=== PATIENT | male | born 1990 | race Two or more races ===

== ENCOUNTER 2016-09-20 10:10 | Inpatient (IN) | payer MEDICAID ==
[~2016-09-20] VITALS: Ht 172.7 cm; Wt 60.8 kg
[~2016-09-20 10:10] MED LIST: ANCEF0.5 GM IVINF; ANCEF1 GM/50 ML IV; AZITHROMYCIN250 MG ORAL; CLINDAMYCIN HC150 MG ORAL; IBUPROFEN600 MG ORAL; MEDROL DOSEPAK4 MG ORAL; NIFEDICAL XL30 MG ORAL; NKM; NORCO 5-325 TA1 EACH ORAL; OXYCODONE HCL5 MG ORAL; RENVELA800 MG ORAL
[2016-09-20 11:06] LABS: BASOPHILS % (AUTO) 0.8 % (0.0-2.0); EOSINOPHILS % (AUTO) 12.6 % (0.0-3.0); LYMPHOCYTES % (AUTO) 25.7 % (20.0-45.0); MEAN CORPUSCULAR HEMOGLOBIN 29.3 PG (27.0-31.0); MEAN CORPUSCULAR HGB CONC 31.8 G/DL (32.0-36.0); MEAN CORPUSCULAR VOLUME 92 FL (80-99); MONOCYTES % (AUTO) 5.5 % (1.0-10.0); NEUTROPHILS % (AUTO) 55.5 % (45.0-75.0); PLATELET COUNT 127 K/UL (150-450); RED BLOOD COUNT 4.02 M/UL (4.70-6.10); RED CELL DISTRIBUTION WIDTH 14.2 % (11.6-14.8); WHITE BLOOD COUNT 5.8 K/UL (4.8-10.8)
[2016-09-20 11:18] LABS: INR 1.2 (0.9-1.1); PROTHROMBIN TIME 11.8 SEC (9.30-11.50)
[2016-09-20 11:20] LABS: ALANINE AMINOTRANSFERASE 21 U/L (3-41); ALBUMIN/GLOBULIN RATIO 1.6 (1.0-2.7); ANION GAP 18 (5-15); ASPARTATE AMINO TRANSFERASE 18 U/L (5-40); CALCIUM 9.3 mg/dL (8.6-10.2); CARBON DIOXIDE 23 mEQ/L (20-30); CHLORIDE 99 mEQ/L (98-107); CREATININE 8.8 mg/dL (0.7-1.2); GLOMERULAR FILTRATION RATE 7.3 mL/min (>60); HEMOLYSIS 6; POTASSIUM 5.7 mEQ/L (3.4-4.9); SODIUM 140 mEQ/L (135-145); TOTAL PROTEIN 6.1 g/dL (6.6-8.7); TROPONIN I < 0.30 ng/mL (<=0.30)
[2016-09-20] MEDS ORDERED: BP pill (11:22)
[2016-09-20] MEDS ORDERED: Calcium Gluconate 1gm/10ml vial IVP ONE (11:45)
[2016-09-20] MEDS ORDERED: Sodium Polystyrene Sulfonate 15gm Powder ORAL ONE (11:45)
[2016-09-20 11:50] VITALS: BP 157/105
--- NOTE | 2016-09-20 11:51 | Emergency Room Report ---
History of Present Illness General Chief Complaint: Generalized Weakness Source: Patient Present Illness HPI The patient presents with dyspnea on exertion and fatigue. He states this began 2 weeks ago when he had the flu. He had sore throat fever and cough that is not productive. He's been able to go to dialysis without problems. Denies any chest pain at this time. He took over the counter cold medicine which advised not to take if dialysis patient. He is concerned this might be a reaction to the medicine. He denies orthopnea or continued productive cough. He still makes urine. Denies any nausea vomiting or diarrhea. He's had no change in his bowel habits. The urine is not foul-smelling. He's had some muscle aches. He states the renal failure is a result from hypertension. Allergies: Coded Allergies: SILVER (Verified Allergy, Severe, SKIN RASH,BLISTER, 08/06/15) Avoid tegederm on chest Uncoded Allergies: MEDICAL TAPE (Allergy, Unknown, rash, 01/03/16) Patient History Past Medical History: see triage record Social History: Reports: smoking - prior Social History Narrative at home Reviewed Nursing Documentation: PMH: Agreed, PSxH: Agreed Nursing Documentation-PMH Past Medical History: No History, Except For Hx Cardiac Problems: No - renal failure Hx Hypertension: Yes Hx Cancer: No Hx Gastrointestinal Problems: No Hx Dialysis: Yes - Started April 2015 ; MWF Hx Neurological Problems: No Review of Systems All Other Systems: negative except mentioned in HPI Physical Exam Vital Signs Date Time Temp Pulse Resp B/P Pulse Ox O2 Delivery O2 Flow Rate FiO2 09/20/16 10:23 98.2 79 16 148/89 100 Room Air Sp02 EP Interpretation: reviewed, normal General Appearance: well appearing, no apparent distress, GCS 15 Head: normocephalic Eyes: bilateral eye PERRL, bilateral eye normal inspection ENT: moist mucus membranes Neck: supple Respiratory: chest non-tender, crackles Cardiovascular #1: regular rate, rhythm Cardiovascular #2: 2+ radial (R), 2+ radial (L) - dialysis shunt Gastrointestinal: normal inspection, normal bowel sounds, non tender, no mass, non-distended Musculoskeletal: back normal, gait/station normal, normal range of motion Neurologic: alert, oriented x3, grossly normal Psychiatric: mood/affect normal Skin: normal inspection, warm/dry Medical Decision Making Diagnostic Impression: Primary Impression: Hyperkalemia Additional Impressions: Pulmonary edema Qualified Codes: J81.0 - Acute pulmonary edema ESRD (end stage renal disease) on dialysis Hypoglycemia HTN (hypertension) Qualified Codes: I15.8 - Other secondary hypertension ER Course The patient presents with fatigue and dyspnea with history of renal failure on dialysis. Differential includes acute myocardial infarction, congestive heart failure, deconditioning, electrolyte imbalance amongst others. Emergent evaluation with EKG, chest x-ray and laboratory evaluation is undertaken. The patient be treated with cardiac monitoring. Potassium returns critically high. His x-ray reveals congestive heart failure. The patient needs treatment for the high potassium. Also blood sugar 68. Contact Dr. Romero who asks for panel for admission. Contact Dr. Valenzuela. He requests contact Dr. Mark. Called, no response. Admit to Dr. Valenzuela telemetry. Laboratory Tests Test 09/20/16 10:45 White Blood Count 5.8 K/UL (4.8-10.8) Red Blood Count 4.02 M/UL (4.70-6.10) L Hemoglobin 11.8 G/DL (14.2-18.0) L Hematocrit 37.1 % (42.0-52.0) L Mean Corpuscular Volume 92 FL (80-99) Mean Corpuscular Hemoglobin 29.3 PG (27.0-31.0) Mean Corpuscular Hemoglobin Concent 31.8 G/DL (32.0-36.0) L Red Cell Distribution Width 14.2 % (11.6-14.8) Platelet Count 127 K/UL (150-450) L Mean Platelet Volume 9.0 FL (6.5-10.1) Neutrophils (%) (Auto) 55.5 % (45.0-75.0) Lymphocytes (%) (Auto) 25.7 % (20.0-45.0) Monocytes (%) (Auto) 5.5 % (1.0-10.0) Eosinophils (%) (Auto) 12.6 % (0.0-3.0) H Basophils (%) (Auto) 0.8 % (0.0-2.0) Prothrombin Time 11.8 SEC (9.30-11.50) H Prothrombin Time INR 1.2 (0.9-1.1) H PTT 27 SEC (23-33) Sodium Level 140 mEQ/L (135-145) Potassium Level 5.7 mEQ/L (3.4-4.9) H Chloride Level 99 mEQ/L (98-107) Carbon Dioxide Level 23 mEQ/L (20-30) Anion Gap 18 (5-15) H Blood Urea Nitrogen 54 mg/dL (7-23) H Creatinine 8.8 mg/dL (0.7-1.2) H Estimate Glomerular Filtration Rate 7.3 mL/min (>60) Glucose Level 68 mg/dL (74-106) L Calcium Level 9.3 mg/dL (8.6-10.2) Total Bilirubin 0.8 mg/dL (0.0-1.2) Aspartate Amino Transferase (AST) 18 U/L (5-40) Alanine Aminotransferase (ALT) 21 U/L (3-41) Alkaline Phosphatase 77 U/L (40-129) Total Creatine Kinase 123 U/L (38-174) Troponin I < 0.30 ng/mL (<=0.30) Pro-B-Type Natriuretic Peptide Pending Total Protein 6.1 g/dL (6.6-8.7) L Albumin 3.8 g/dL (3.5-5.2) Globulin 2.3 g/dL Albumin/Globulin Ratio 1.6 (1.0-2.7) EKG Diagnostic Results Rate: normal Rhythm: NSR ST Segments: no acute changes Rhythm Strip Diag. Results EP Interpretation: yes Rhythm: NSR, no PVC's, no ectopy Chest X-Ray Diagnostic Results EP Interpretation: Yes Findings: no effusion, no pneumothorax, other - CHF Number of Views: 1 Last Vital Signs Date Time Temp Pulse Resp B/P Pulse Ox O2 Delivery O2 Flow Rate FiO2 09/20/16 11:57 157/105 09/20/16 11:50 85 18 100 Room Air 09/20/16 10:23 98.2 Status: improved Disposition: ADMITTED INPATIENT Condition: Serious Referrals: NON PHYSICIAN (PCP) Lio Madrigal M.D. Sep 20, 2016 11:51
[2016-09-20] MEDS ORDERED: Nitroglycerin 2% oint pkt TOPIC ONE (12:00)
[2016-09-20 12:20] LABS: APPEARANCE,URINE CLEAR; KETONES,URINE 1+ (NEGATIVE); LEUKOCYTE ESTERASE ,URINE NEGATIVE (NEGATIVE); NITRITE,URINE NEGATIVE (NEGATIVE); PH,URINE 8 (4.5-8.0); PROTEIN,URINE 4+ (NEGATIVE); UROBILINOGEN,URINE NORMAL MG/DL (0.0-1.0)
[2016-09-20 12:32] LABS: BACTERIA,URINE FEW /HPF; SQUAMOUS EPITHELIAL CELL,UR OCCASIONAL /LPF (NONE/OCC); WBC,URINE 0-2 /HPF (0 - 0)
[2016-09-20 14:00] VITALS: BP 145/96
[2016-09-20 15:30] VITALS: BP 138/99
[2016-09-20 16:40] VITALS: BP 146/83
[2016-09-20] MEDS: Heparin 5000 units/ml inj SUBQ SCH (17:59)
[2016-09-20] MEDS: Renagel 400mg cap ORAL SCH (18:00)
[2016-09-20] MEDS ORDERED: Bisacodyl EC 5mg tab ORAL PRN (18:00)
[2016-09-20 20:00] VITALS: BP 153/103
[2016-09-20] MEDS ORDERED: Zolpidem 5mg tab ORAL PRN (21:00)
[2016-09-20] MEDS: Losartan 50mg tab ORAL SCH (21:47)
[2016-09-20 21:48] VITALS: BP 152/90
--- NOTE | 2016-09-20 22:08 | History and Physical Report ---
DATE OF ADMISSION: 09/20/2016 CHIEF COMPLAINT AND REASON FOR HOSPITALIZATION: The patient is a 26-year-old man with end-stage renal disease, admitted with CHF and hyperkalemia. HISTORY OF PRESENT ILLNESS: The patient has been on dialysis for about two years. He has hypertension and end-stage renal disease. He had his last dialysis on 09/18/2016. He came to the hospital feeling weak, short of breath and was found to have potassium of 5.7 and BNP [id number]. There is no chest pain. He states he generally tolerates dialysis well. PAST SURGICAL HISTORY: AV fistula in the left arm. MEDICATIONS: He denies taking any medications. ALLERGIES: None known. HABITS: He is a nondrinker and nonsmoker. SYSTEM REVIEW: HEENT: Vision hearing is good. ENDOCRINE: No known diabetes or thyroid disease. PULMONARY: No asthma, TB, or chronic cough. CARDIAC: History of fluid overload in the past and hypertension. Denies angina or CO. GI: Denies GI bleeding. He has had some diarrhea and nausea. GENITOURINARY: No dysuria or hematuria. NEUROLOGIC: No CVA or seizures. PHYSICAL EXAMINATION: GENERAL: The patient is alert and well-developed man, in no acute distress. VITAL SIGNS: Blood pressure was 157/105, now 138/99, temperature 98.3 degrees, pulse 88, and respirations 22. HEAD, EYES EARS, NOSE, AND THROAT: Sclerae nonicteric. Ocular motions intact in all directions. Oral mucosa moist. NECK: No adenopathy or thyroid enlargement. LUNGS: Clear. HEART: Rhythm is regular. There is increase S2. I hear no murmur. ABDOMEN: Soft. No organomegaly or masses. EXTREMITIES: No edema, cyanosis, or clubbing. PERTINENT LABS: He has a white count of 5.8 and hemoglobin 11.8. Potassium 5.7, BUN 54, and creatinine 8.8. IMPRESSION: 1. End-stage renal disease. 2. Hyperkalemia. 3. Congestive heart failure, acute on chronic. 4. Hypertensive heart disease. PLAN: Dialysis will be arranged. He may need further antihypertensive therapy. I have discussed diet and medication management with the patient. Alvarez Valenzuela M.D. DR: Rei JOB#: [id number] CC:
[2016-09-21] VITALS (21 sets, daily range): BP systolic 130–148; BP diastolic 76–100
--- NOTE | 2016-09-21 08:39 | Diagnostic Imaging Report ---
Indication: Chest Pain Comparison: 09/24/15 A single view chest radiograph was obtained. Findings: There is infiltrate suspected at the right lung base. Please correlate clinically. The heart is enlarged. Bones are unremarkable in appearance. Impression: Question of infiltrate right lung base. These correlate clinically for pneumonia. Cardiomegaly
[2016-09-21] MEDS: Renagel 400mg cap ORAL SCH ×3 (09:00→18:00)
[2016-09-21] MEDS: Losartan 50mg tab ORAL SCH ×2 (09:00→20:44)
[2016-09-21] MEDS: Heparin 5000 units/ml inj SUBQ SCH ×2 (10:27→20:44)
[2016-09-22] VITALS: BP 140/88
[2016-09-22 04:00] VITALS: BP 125/72
[2016-09-22 07:48] VITALS: BP 130/77
[2016-09-22] MEDS: Heparin 5000 units/ml inj SUBQ SCH (09:00)
[2016-09-22] MEDS: Renagel 400mg cap ORAL SCH ×3 (09:35→18:00)
[2016-09-22] MEDS: Losartan 50mg tab ORAL SCH (09:36)
[2016-09-22 11:16] VITALS: BP 138/84
[2016-09-22 16:00] VITALS: BP 134/84
[2016-09-22] MEDS ORDERED: NS 275ml ONE (16:59)
[2016-09-22] MEDS ORDERED: 1/2 NS 1000ml IV ONE (16:59)
[2016-09-22] MEDS ORDERED: Tubing Blood Filter IV ONE (16:59)
--- NOTE | 2016-09-22 18:56 | Cardiology Report ---
APPROVED REPORT EKG Measurement Heart [id number] Normal sinus rhythm Possible Left atrial enlargement Nonspecific T wave abnormality Abnormal ECG
--- NOTE | 2016-10-03 06:54 | Discharge Summary ---
Discharge Summary Hospital Course Date of Admission Sep 20, 2016 at 11:51 Date of Discharge Sep 22, 2016 at 17:00 Admitting Diagnosis HYPERKALEMIA ,CHF.ESRD HPI Hakan Croft is a 26 year old male who was admitted on Sep 20, 2016 at 11:51 for Hyperkalemia, Congestive Heart Failure, Esrd Procedures [id number] Discharge Discharge Disposition Patient was discharged to Home (01) Discharge Diagnoses: Ruby Arzate NP Oct 03, 2016 06:54
--- NOTE | 2016-10-04 03:09 | Discharge Summary 2 SIG ---
DATE OF ADMISSION: 09/20/2016 DATE OF DISCHARGE: 09/22/2016 BRIEF HOSPITAL COURSE: The patient is a 26-year-old male, who presented to ED complaining of dyspnea on exertion and fatigue and some fever and sore throat. He has history of end-stage renal disease and is on hemodialysis. On evaluation at ED, potassium was 5.7. X-ray revealed congestion. Blood sugar was 68. He was admitted to telemetry for cardiac monitoring. He was started on renal diet. He was given Kayexalate and calcium gluconate and he was eventually discharged home. FINAL DIAGNOSES: 1. Hyperkalemia. 2. End-stage renal disease, on hemodialysis. 3. Hypertension. Ana Mark M.D. I have been assigned to dictate discharge summary on this account and I was not involved in the patient's management. Ruby Arzate N.P. DR: Andrew JOB#: [id number] CC:
== END 2016-09-22 17:00 | disposition home or self-care (01) | DRG 194 ==
LOC: EMR 10:38 → 2W 11:51 → EDBEDREQ 11:58 → 2W 19:45 → 2E 09-22 00:04
DX: I13.2 Hypertensive heart and chronic kidney disease with heart failure and with stage 5 chronic kidney disease, or end stage renal disease (principal); N18.6 End stage renal disease; I50.9 Heart failure, unspecified; Z99.2 Dependence on renal dialysis; E87.5 Hyperkalemia; Z88.8 Allergy status to other drugs, medicaments and biological substances
CPT/HCPCS: 36415; 71010; 80053; 81003; 82550; 82962; 83880; 84484; 85025; 85610; 85730; 86705; 86709; 86803; 87081; 87340; 93005; J2405

== ENCOUNTER 2017-05-23 08:13 | Emergency (ER) | payer MEDICAID ==
[~2017-05-23] VITALS: Ht 172.7 cm; Wt 59.0 kg
[~2017-05-23 08:13] MED LIST changes: +BP pill
[2017-05-23 08:32] VITALS: BP 147/87
[2017-05-23] MEDS ORDERED: ROBAXIN-750750 MG PO (08:39)
[2017-05-23] MEDS ORDERED: ACETAMINOPHEN500 M3 ORAL (08:39)
--- NOTE | 2017-05-23 08:44 | Emergency Room Report ---
History of Present Illness General Chief Complaint: Pain Source: Patient Present Illness HPI 19-year-old male history of end-stage renal disease on dialysis Wednesday for the last 2 years unknown reason per kidney disease, presenting with 3 weeks of left hip pain and right knee pain patient states that left hip and right knee aches only when he runs long distances. Denies pain otherwise. Left hip pain starts around left buttocks, no radiation. No weakness of lower extremities No fever chills, no swollen joints Denies any current pain Allergies: Coded Allergies: SILVER (Verified Allergy, Severe, SKIN RASH,BLISTER, 08/06/15) Avoid tegederm on chest Uncoded Allergies: MEDICAL TAPE (Allergy, Unknown, rash, 01/03/16) Patient History Past Medical History: see triage record Past Surgical History: none Pertinent Family History: none Reviewed Nursing Documentation: PMH: Agreed, PSxH: Agreed Nursing Documentation-PMH Hx Cardiac Problems: No - renal failure Hx Hypertension: Yes Hx Cancer: No Hx Gastrointestinal Problems: No Hx Dialysis: Yes - M-W- last dialyzed on Wednesday Hx Neurological Problems: No Review of Systems All Other Systems: negative except mentioned in HPI Physical Exam Vital Signs Date Time Temp Pulse Resp B/P (MAP) Pulse Ox O2 Delivery O2 Flow Rate FiO2 05/23/17 08:19 97.9 74 16 147/87 100 Room Air Sp02 EP Interpretation: reviewed, normal General Appearance: normal inspection, well appearing, no apparent distress, alert, GCS 15, non-toxic Head: normocephalic, atraumatic Eyes: bilateral eye normal inspection, bilateral eye PERRL, bilateral eye EOMI ENT: normal ENT inspection, normal pharynx, normal voice, moist mucus membranes Neck: normal inspection, full range of motion, supple Respiratory: normal inspection, lungs clear, normal breath sounds, no respiratory distress, no retraction, no wheezing, speaking full sentences, chest symmetrical Cardiovascular #1: normal inspection, regular rate, rhythm, no edema, normal capillary refill Cardiovascular #2: 2+ radial (R), 2+ radial (L) Gastrointestinal: normal inspection, non tender, soft, non-distended, no guarding Genitourinary: no CVA tenderness Musculoskeletal: back normal, normal range of motion, non-tender, other - Left upper extremity AV fistula with palpable thrill, all extremities with full range of motion, no swollen joints, right knee nontender to palpation, left hip full range of motion no abnormalities, ambulating regularly, able to bear weight on both lower extremities without issue Neurologic: normal inspection, alert, oriented x3, responsive, motor strength/ tone normal, sensory intact, normal gait, speech normal Psychiatric: normal inspection, judgement/insight normal, memory normal Skin: normal inspection, normal color, no rash, warm/dry, well hydrated, normal turgor Medical Decision Making Diagnostic Impression: Primary Impression: Hip pain, left Additional Impression: Chronic musculoskeletal pain ER Course 19-year-old male with left hip and right knee pain when he runs for 3 weeks DDX: Likely musculoskeletal pain, arthritis Not concerned with fracture, completely normal exam No symptoms currently Plan: None ER course: Patient stable, has been ambulatory Disposition: Patient is to be discharged home with a prescription of Robaxin and Tylenol Strict precautions discussed with patient on when to return to the emergency room including increased redness or swelling joints, increased pain/swelling of extremity, fever or chills, which could indicate severe illness. Patient is to follow up with their primary care doctor within 5 days. Patient also instructed to follow up with an orthopedic doctor if continuing to have mild/moderate pain as he may need further outpatient imaging. Patient agrees with plan. Please note that this Emergency Department Report was dictated using [employer] technical specialist technology software, occasionally this can lead to erroneous entry secondary to interpretation by the dictation equipment. Last Vital Signs Date Time Temp Pulse Resp B/P (MAP) Pulse Ox O2 Delivery O2 Flow Rate FiO2 05/23/17 08:32 97.9 68 16 147/87 100 Room Air Disposition: HOME, SELF-CARE Condition: Stable Scripts Acetaminophen* (ACETAMINOPHEN EXTRA STRENGTH*) 500 Mg Tablet 500 MG ORAL Q8H Y for Fever/Headache/Mild Pain, #30 TAB 0 Refills Prov: Jennifer Asencio M.D. 05/23/17 Methocarbamol* (ROBAXIN-750*) 750 Mg Tablet 750 MG PO QID, #28 TAB 0 Refills Prov: Jennifer Asencio M.D. 05/23/17 Referrals: NON PHYSICIAN (PCP) Patient Instructions: Hip Pain, Musculoskeletal Pain Additional Instructions: Please followup with your primary care doctor in one week Please followup with a orthopedic doctor in 2 weeks if not better Jennifer Asencio M.D. May 23, 2017 08:44
[2017-05-23 08:48] VITALS: BP 147/87
== END 2017-05-23 08:51 | disposition home or self-care (01) ==
LOC: EMR 08:31
DX: M25.552 Pain in left hip (principal); M25.561 Pain in right knee; G89.29 Other chronic pain; I10 Essential (primary) hypertension; N19 Unspecified kidney failure; Z99.2 Dependence on renal dialysis
CPT/HCPCS: 99283

== ENCOUNTER 2017-10-24 06:42 | Emergency (ER) | payer MEDICAID ==
[~2017-10-24] VITALS: Ht 172.7 cm; Wt 59.0 kg
[~2017-10-24 06:42] MED LIST changes: +ACETAMINOPHEN500 M3 ORAL; +ROBAXIN-750750 MG PO
[2017-10-24 07:05] VITALS: BP 157/103
[2017-10-24] MEDS ORDERED: AMOXICILLIN500 MG ORAL (07:10)
[2017-10-24 07:14] VITALS: BP 157/103
--- NOTE | 2017-10-24 09:47 | Emergency Room Report ---
History of Present Illness General Chief Complaint: Eye Problems Source: Patient Present Illness HPI 27-year-old M presents ED for evaluation. Notes pain and swelling to his right lower eyelid started 3 days ago. Pain is dull, 3 out of 10, nonradiating. Denies photophobia. Denies any discharge. Denies fevers or chills. Patient has end-stage renal disease. Gets dialysis Wednesday. No other aggravating or relieving factors. Denies any other associated symptoms Allergies: Coded Allergies: SILVER (Verified Allergy, Severe, SKIN RASH,BLISTER, 08/06/15) Avoid tegederm on chest Uncoded Allergies: MEDICAL TAPE (Allergy, Unknown, rash, 01/03/16) Patient History Past Medical History: renal disease, dialysis Past Surgical History: none Pertinent Family History: none Social History: Denies: smoking, alcohol use, drug use Immunizations: UTD Reviewed Nursing Documentation: PMH: Agreed; PSxH: Agreed Nursing Documentation-PMH Hx Cardiac Problems: No - renal failure Hx Hypertension: Yes Hx Cancer: No Hx Gastrointestinal Problems: No Hx Dialysis: Yes - M-W-F last dialyzed on Wednesday Hx Neurological Problems: No Review of Systems All Other Systems: negative except mentioned in HPI Physical Exam Vital Signs Date Time Temp Pulse Resp B/P (MAP) Pulse Ox O2 Delivery O2 Flow Rate FiO2 10/24/17 06:58 97.8 81 18 157/103 99 Room Air 97.9 Sp02 EP Interpretation: reviewed, normal General Appearance: no apparent distress, alert, GCS 15, non-toxic Head: normocephalic Eyes: right eye lid inflammation - R lower eyelid swelling; left eye normal inspection; bilateral eye PERRL, bilateral eye visual acuity ENT: hearing grossly normal, normal pharynx, no angioedema, normal voice Neck: normal inspection Respiratory: normal inspection Cardiovascular #1: normal inspection Gastrointestinal: normal inspection Rectal: deferred Genitourinary: no CVA tenderness Musculoskeletal: normal inspection Neurologic: alert, oriented x3, responsive, motor strength/tone normal, sensory intact, speech normal Psychiatric: normal inspection Skin: normal inspection Lymphatic: normal inspection Medical Decision Making Diagnostic Impression: Primary Impression: Eyelid cellulitis Qualified Codes: H00.033 - Abscess of eyelid right eye, unspecified eyelid Additional Impression: ESRD (end stage renal disease) ER Course Hospital Course 27 yo M presents to ED c/o R lower eyelid pain/swelling Differential diagnoses include: conjunctivitis, traumatic iritis, foreign body, corneal abrasion Clinical course Patient placed on stretcher. After initial history, his exam reveals male in no acute distress. There is right lower eyelid swelling and induration. No discharge. No ocular involvement. System eyelid cellulitis. Discussed findings with patient. We'll prescribe antibiotics. Since patient is on dialysis we will provide renal dosing Diagnosis - eyelid cellulitis, ESRD Stable and discharged to home with prescription for amoxicillin. warm compresses. Followup with PMD/Optho. Return to ED if symptoms recur or worsen Last Vital Signs Date Time Temp Pulse Resp B/P (MAP) Pulse Ox O2 Delivery O2 Flow Rate FiO2 10/24/17 07:14 97.9 18 157/103 99 Room Air 97.9 10/24/17 06:58 81 Status: improved Disposition: HOME, SELF-CARE Condition: Stable Scripts Amoxicillin* (AMOXIL*) 500 Mg Capsule 500 MG ORAL DAILY for 10 Days, CAP Prov: Jacobo May MD 10/24/17 Referrals: [facility],REFERRING (PCP) Patient Instructions: Jacobo Griffith MD Oct 24, 2017 09:47
== END 2017-10-24 07:15 | disposition home or self-care (01) ==
LOC: EMR 07:10
DX: H00.032 Abscess of right lower eyelid (principal); I12.0 Hypertensive chronic kidney disease with stage 5 chronic kidney disease or end stage renal disease; N18.6 End stage renal disease; Z99.2 Dependence on renal dialysis
CPT/HCPCS: 99283

== ENCOUNTER 2018-12-09 08:51 | Emergency (ER) | payer MEDICAID, OTHER ==
[~2018-12-09] VITALS: Ht 172.7 cm; Wt 61.7 kg
[~2018-12-09 08:51] MED LIST changes: +AMOXICILLIN500 MG ORAL
[2018-12-09 09:00] VITALS: BP 158/102
--- NOTE | 2018-12-09 09:02 | NUR ---
ED Nurse Note: pt walked in to ED from dialysis center due to pain on AV shunt for 3 days. per pt, it seems swelling and noted multiple bruises. on dialysis every M, W, F and last one done today. able to hear bruit and able to palpate thrill. AAO x4. respirations even and non-labored noted. skin warm to touch. no open wound noted. ambulatory with steady gait. will wait for the further order.
--- NOTE | 2018-12-09 09:06 | Emergency Room Report ---
History of Present Illness General Chief Complaint: Pain Source: Patient, Medical Record Present Illness HPI Patient presents initially with complaint of questionable increase in size and discomfort to the left upper arm AV shunt Reports that he noticed this area yesterday and today Appeared somewhat larger than usual Denies any fevers or chills patient reports feeling nauseous recently Denies any diarrhea or abdominal pain Reports mild cough Denies any fevers Patient had dialysis this morning without any incidents And presents for further evaluation Allergies: Coded Allergies: SILVER (Verified Allergy, Severe, SKIN RASH,BLISTER, 08/06/15) Avoid tegederm on chest Uncoded Allergies: MEDICAL TAPE (Allergy, Unknown, rash, 01/03/16) Patient History Past Medical History: see triage record Pertinent Family History: none Reviewed Nursing Documentation: PMH: Agreed; PSxH: Agreed Nursing Documentation-PMH Past Medical History: No History, Except For Hx Cardiac Problems: No - renal failure Hx Hypertension: Yes Hx Cancer: No Hx Gastrointestinal Problems: No Hx Dialysis: Yes - M-W-F Hx Neurological Problems: No Review of Systems All Other Systems: negative except mentioned in HPI Physical Exam Vital Signs Date Time Temp Pulse Resp B/P (MAP) Pulse Ox O2 Delivery O2 Flow Rate FiO2 12/09/18 08:57 98.2 80 16 98 Room Air 12/09/18 09:00 158/102 Sp02 EP Interpretation: reviewed, normal General Appearance: well appearing, no apparent distress Head: normocephalic, atraumatic Eyes: bilateral eye PERRL, bilateral eye EOMI ENT: normal pharynx, no angioedema Neck: supple Respiratory: no respiratory distress, no retraction, no accessory muscle use Cardiovascular #1: regular rate, rhythm Gastrointestinal: non tender Musculoskeletal: normal inspection Neurologic: alert, oriented x3, responsive Skin: other - AV fistula left upper arm appropriate thrill, no obvious expanding hematomas small evidence of ecchymosis on the superior aspect Lymphatic: no adenopathy Medical Decision Making Diagnostic Impression: Primary Impression: ESRD (end stage renal disease) Additional Impression: Thrombocytopenia ER Course I spoke to the patient's associate professor of economics who reports that she is aware of the changes with the patient's AV fistula she has attempted outpatient referral however secondary to the patient's HMO has been difficult to obtain consultation Patient also has low platelets which has been known for several years On today's exam there is no evidence of change in pathology blood work at baseline levels for the patient including the low platelets Patient is encouraged to follow up closely by primary physician as referral [place] [facility] [place] might be required for vascular specialty outpatient follow-up Labs Test 12/09/18 09:10 White Blood Count 4.8 K/UL (4.8-10.8) Red Blood Count 4.37 M/UL (4.70-6.10) Hemoglobin 12.9 G/DL (14.2-18.0) Hematocrit 39.8 % (42.0-52.0) Mean Corpuscular Volume 91 FL (80-99) Mean Corpuscular Hemoglobin 29.5 PG (27.0-31.0) Mean Corpuscular Hemoglobin Concent 32.3 G/DL (32.0-36.0) Red Cell Distribution Width 16.9 % (11.6-14.8) Platelet Count 82 K/UL (150-450) Mean Platelet Volume 5.8 FL (6.5-10.1) Neutrophils (%) (Auto) % (45.0-75.0) Lymphocytes (%) (Auto) % (20.0-45.0) Monocytes (%) (Auto) % (1.0-10.0) Eosinophils (%) (Auto) % (0.0-3.0) Basophils (%) (Auto) % (0.0-2.0) Differential Total Cells Counted 100 Neutrophils % (Manual) 68 % (45-75) Lymphocytes % (Manual) 19 % (20-45) Monocytes % (Manual) 5 % (1-10) Eosinophils % (Manual) 8 % (0-3) Basophils % (Manual) 0 % (0-2) Band Neutrophils 0 % (0-8) Platelet Estimate Decreased Platelet Morphology Normal Red Blood Cell Morphology Anisocytosis 1+ Prothrombin Time 11.4 SEC (9.30-11.50) Prothromb Time International Ratio 1.1 (0.9-1.1) Sodium Level 141 MMOL/L (136-145) Potassium Level 3.4 MMOL/L (3.5-5.1) Chloride Level 101 MMOL/L (98-107) Carbon Dioxide Level 32 MMOL/L (21-32) Anion Gap 8 mmol/L (5-15) Blood Urea Nitrogen 27 mg/dL (7-18) Creatinine 5.4 MG/DL (0.55-1.30) Estimat Glomerular Filtration Rate 12.6 mL/min (>60) Glucose Level 101 MG/DL (74-106) Calcium Level 9.2 MG/DL (8.5-10.1) Total Bilirubin 1.3 MG/DL (0.2-1.0) Direct Bilirubin 0.4 MG/DL (0.0-0.3) Aspartate Amino Transf (AST/SGOT) 31 U/L (15-37) Alanine Aminotransferase (ALT/SGPT) 31 U/L (12-78) Alkaline Phosphatase 98 U/L (46-116) Total Protein 6.9 G/DL (6.4-8.2) Albumin 3.6 G/DL (3.4-5.0) Globulin 3.3 g/dL Albumin/Globulin Ratio 1.1 (1.0-2.7) Lipase 129 U/L (73-393) Rhythm Strip Diag. Results EP Interpretation: yes Rate: 60 Rhythm: NSR, no PVC's, no ectopy Last Vital Signs Date Time Temp Pulse Resp B/P (MAP) Pulse Ox O2 Delivery O2 Flow Rate FiO2 12/09/18 09:00 98.2 80 16 158/102 98 Room Air Status: improved Disposition: HOME, SELF-CARE Condition: Improved Additional Instructions: Patient is provided with the discharge instructions notified to follow up with primary doctor in the next 2-3 days otherwise return to the er with any worsening symptoms. Please note that this report is being documented using [employer] technology. This can lead to erroneous entry secondary to incorrect interpretation by the dictating instrument. Maribell Quesada DO December 09, 2018 09:06
--- NOTE | 2018-12-09 09:09 | NUR ---
ED Nurse Note: pt refused zofran due to no sx at this time.
--- NOTE | 2018-12-09 09:10 | NUR ---
ED Nurse Note: Venipuncture to right AC performed using 23g as ordered. Patient tolerated the procedure without discomfort. Applied clean, dry dressing to the site.
[2018-12-09 09:21] LABS: HEMATOCRIT 39.8 % (42.0-52.0); HEMOGLOBIN 12.9 G/DL (14.2-18.0); MEAN CORPUSCULAR VOLUME 91 FL (80-99); PLATELET COUNT 82 K/UL (150-450); RED BLOOD COUNT 4.37 M/UL (4.70-6.10); RED CELL DISTRIBUTION WIDTH 16.9 % (11.6-14.8); WHITE BLOOD COUNT 4.8 K/UL (4.8-10.8)
[2018-12-09 09:32] LABS: INR 1.1 (0.9-1.1)
[2018-12-09 09:33] LABS: ANION GAP 8 mmol/L (5-15); BLOOD UREA NITROGEN 27 mg/dL (7-18); CALCIUM 9.2 MG/DL (8.5-10.1); CARBON DIOXIDE 32 MMOL/L (21-32); CHLORIDE 101 MMOL/L (98-107); CREATININE 5.4 MG/DL (0.55-1.30); POTASSIUM 3.4 MMOL/L (3.5-5.1); SODIUM 141 MMOL/L (136-145)
[2018-12-09 09:43] LABS: ALANINE AMINOTRANSFERASE 31 U/L (12-78); ALBUMIN 3.6 G/DL (3.4-5.0); ALBUMIN/GLOBULIN RATIO 1.1 (1.0-2.7); ALKALINE PHOSPHATASE 98 U/L (46-116); ASPARTATE AMINO TRANSFERASE 31 U/L (15-37); BILIRUBIN,DIRECT 0.4 MG/DL (0.0-0.3); BILIRUBIN,TOTAL 1.3 MG/DL (0.2-1.0)
[2018-12-09 10:14] VITALS: BP 148/99
--- NOTE | 2018-12-09 10:16 | NUR ---
ER DISCHARGE NOTE: Patient is cleared to be discharged per ERMD, pt is aox4, on room air, with stable vital signs. pt was given dc instructions, pt was able to verbalize understanding, pt id band removed . pt is able to ambulate with steady gait. pt took all belongings. pt instructed to follow up with PCP to get referral to see specailist.
== END 2018-12-09 10:18 | disposition home or self-care (01) ==
LOC: EMR 09:20
DX: I12.0 Hypertensive chronic kidney disease with stage 5 chronic kidney disease or end stage renal disease (principal); N18.6 End stage renal disease; Z99.2 Dependence on renal dialysis; D69.6 Thrombocytopenia, unspecified
CPT/HCPCS: 36415; 80053; 82248; 83690; 85007; 85025; 85610; 99284